=== PATIENT | female | born 1990 | race Caucasian/White ===

== ENCOUNTER 2017-02-18 09:44 | Emergency (ER) | payer MEDICAID ==
[~2017-02-18 09:44] MED LIST: CEPH-460 PO; PYRI25TA2 PO; UNIS25TA2 PO; ZOFR4TAB3 SL
--- NOTE | 2017-02-18 11:04 | PD ---
HPI Chief Complaint Nausea vomiting and contractions Date Seen: Feb 18, 2017 Travel History International Travel<30 Days: No Contact w/Intl Traveler<30Days: No Known Affected Area: No History of Present Illness HPI 26-year-old who is at 35 weeks 2 days today complaining of nausea vomiting for the past 2 days. She is able to tolerate fluids without an issue but if she attempts to eat solid foods and its accompanied by nausea. She had diarrhea that started yesterday approximately 3-5 times in a day. Patient denies fever denies and family members to her sick, denies abdominal pain. She noted occasional contractions this morning Para: 1 : 2 History Past Medical History Medical History: Denies Significant Hx Obstetric History Obstetric History Spontaneous vaginal delivery Past Surgical History Surgical History: No Previous Surgery Family History Family History: Negative Social History Alcohol Use: No Tobacco Use: No Substance Abuse: No Allergies-Medications (Allergen,Severity, Reaction): Coded Allergies: No Known Allergies (Verified , 08/14/16) Home Meds Active Scripts Ondansetron Odt (Zofran Odt)4 Mg Tab4 Mg SL Q6HR PRN (Nausea/Vomiting) #30 TAB Ref 0 Prov:Carly Cota MD 08/14/16 Doxylamine Succinate (Sleep) (Unisom)25 Mg Tab0.5 Tab PO BID PRN (NAUSEA) #20 TAB Prov:Carly Cota MD 08/14/16 Pyridoxine 25 Mg Tab25 Mg PO Q6HR PRN (NAUSEA) #30 TAB Ref 0 Prov:Carly Cota MD 08/14/16 Cephalexin (Keflex)500 Mg [id number] Mg PO BID 7 Days Ref 0 Prov:Carly Cota MD 08/14/16 Review of Systems Except as stated in HPI: all other systems reviewed are Neg Physical Exam Narrative GENERAL: Well-nourished, well-developed patient. SKIN: Warm and dry. HEAD: Normocephalic and atraumatic. EYES: No scleral icterus. No injection or drainage. ENT: No nasal drainage noted. Mucous membranes pink. Airway patent. NECK: Supple, trachea midline. No JVD. CARDIOVASCULAR: Regular rate and rhythm without murmurs, gallops, or rubs. RESPIRATORY: Breath sounds equal bilaterally. No accessory muscle use. ABDOMEN/GI: Abdomen soft, non-tender, bowel sounds present, no rebound, no guarding Gravid to [36-] weeks size Fundal Height: [-] GENITOURINARY: External Genitalia: intact and normal in appearance BUS glands: [-Normal] Cervix: [Fingertip-] Dilatation: [-Fingertip] Effacement: [-Long] Station: [-3-] Presentation: [-Vertex] Membranes: [intact ] Uterine Contractions: [-Irregular occasional] FHT's: Category: [-1] Baseline: [150-] Reactive: [-Moderate] Variability: [-Moderate] Decels: [-Absent] EXTREMITIES: No cyanosis or edema. BACK: Nontender without obvious deformity. No CVA tenderness. NEUROLOGICAL: Awake and alert. Motor and sensory grossly within normal limits. Five out of 5 muscle strength in all muscle groups. Normal speech. Data Data Vital Signs Reviewed: Yes Orders Vital Signs (Adult) .ON ADMISSION (02/18/17 10:59) ^ Labor Status (02/18/17 10:59) Urinalysis - C+S If Indicated (02/18/17 10:59) Diet Liquid (02/18/17 Lunch) Cbc No Diff, Includes Plts (02/18/17 10:59) Basic Metabolic Panel (Bmp) (02/18/17 10:59) Labs Laboratory Tests Test 02/18/17 10:30 White Blood Count 7.9 TH/MM3 Red Blood Count 4.25 MIL/MM3 Hemoglobin 12.3 GM/DL Hematocrit 37.3 % Mean Corpuscular Volume 87.7 FL Mean Corpuscular Hemoglobin 28.9 PG Mean Corpuscular Hemoglobin 32.9 % Concent Red Cell Distribution Width 14.4 % Platelet Count 193 TH/MM3 Mean Platelet Volume 8.6 FL Urine Color YELLOW Urine Turbidity CLOUDY Urine pH 6.0 Urine Specific [place] 1.031 Urine Protein 100 mg/dL Urine Glucose (UA) TRACE mg/dL Urine Ketones 10 mg/dL Urine Occult Blood NEG Urine Nitrite NEG Urine Bilirubin SMALL Urine Urobilinogen 2.0 MG/DL Urine Leukocyte Esterase LARGE Urine RBC 5 /hpf Urine WBC 39 /hpf Urine Squamous Epithelial 7 /hpf Cells Urine Bacteria MANY /hpf Urine Mucus FEW /lpf Microscopic Urinalysis Comment CULTURE INDICATED Sodium Level 139 MEQ/L Potassium Level 3.5 MEQ/L Chloride Level 107 MEQ/L Carbon Dioxide Level 21.4 MEQ/L Anion Gap 11 MEQ/L Blood Urea Nitrogen 8 MG/DL Creatinine 0.52 MG/DL Estimat Glomerular Filtration 144 ML/MIN Rate Random Glucose 78 MG/DL Calcium Level 8.0 MG/DL MDM Plan 26yo at 35 weeks gestation with probably viral gastroenteritis, patient is able to tolerate po Urine appears infected - will give script for Macrobid Phenergan as outpatient for any residual nausea Diagnosis Diagnosis: Primary Impression: Viral gastroenteritis Additional Impressions: 35 weeks gestation of Irregular uterine contractions Disposition: DISCHARGE HOME Scripts Promethazine (Phenergan)25 Mg [id number] Mg PO Q6H PRN (NAUSEA OR VOMITING) #12 TAB Ref 0 Prov:Sheyla Murray MD 02/18/17 Nitrofurantoin Monohydrate Macrocrystals (Macrobid)100 Mg [id number] Mg PO BID #14 CAP Ref 0 Prov:Sheyla Murray MD 02/18/17 Sheyla Murray MD Feb 18, 2017 11:03
[2017-02-18 11:21] LABS: HEMATOCRIT 37.3 % (35.0-46.0); MEAN CELL VOLUME 87.7 FL (80.0-100.0); MEAN CORPUSCULAR HEMOGLOBIN 28.9 PG (27.0-34.0); MEAN CORPUSCULAR HGB CONC 32.9 % (32.0-36.0); PLATELET COUNT 193 TH/MM3 (150-450); RED BLOOD COUNT 4.25 MIL/MM3 (4.00-5.30); RED CELL DISTRIBUTION WIDTH 14.4 % (11.6-17.2); REVIEW FLAG FINAL; WHITE BLOOD COUNT 7.9 TH/MM3 (4.0-11.0)
[2017-02-18 11:36] LABS: BACTERIA, URINE MANY /hpf; BLOOD, URINE NEG (NEG); COMMENT (UR) CULTURE INDICATED; CULTURE IF INDICATED CULTURE INDICATED; GLUCOSE,URINE TRACE mg/dL (NEG); KETONE, URINE 10 mg/dL (NEG); MUCUS URINE FEW /lpf (OCC); NITRITE,URINE NEG (NEG); SQUAMOUS EPITHELIAL CELL URINE 7 /hpf (0-5); URINE COLOR YELLOW (YELLW/STRAW)
[2017-02-18] MEDS ORDERED: PROCHLORPERAZINE INJ 10 MG/2 ML VIAL IM ONE (11:45)
[2017-02-18 12:02] LABS: BICARBONATE 21.4 MEQ/L (21.0-32.0); POTASSIUM 3.5 MEQ/L (3.5-5.1)
[2017-02-18] MEDS ORDERED: MACR100C2 PO (12:13)
[2017-02-18] MEDS ORDERED: PROM25TA10 PO (12:13)
[2017-02-18] MEDS ORDERED: [UNRECOGNIZED DRUG - REMARK] IM (12:30)
== END 2017-02-18 12:40 | disposition home or self-care (01) ==
LOC: HOBED 09:44
DX: O26.899 Other specified pregnancy related conditions, unspecified trimester (principal); A08.4 Viral intestinal infection, unspecified; Z3A.35 35 weeks gestation of pregnancy
CPT/HCPCS: 80048; 81001; 85027; 87086; 96372

== ENCOUNTER 2017-03-04 22:10 | Inpatient (IN) | payer MEDICAID ==
[2017-03-04] VITALS (11 sets, daily range): BP systolic 110–132; BP diastolic 55–68; PULSE 85–104; RESP 18
[~2017-03-04] VITALS: Ht 167.6 cm; Wt 96.2 kg
[~2017-03-04 22:10] MED LIST changes: +MACR100C2 PO; +PROM25TA10 PO; +ePHEDrine/NS 25 MG/5 ML SYR IV PRN
[2017-03-04] MEDS ORDERED: fentaNYL 2MCG-BUPIV 0.125% 100 ML EPIDURAL SCH (22:30)
[2017-03-04] MEDS ORDERED: DO NOT ADMINISTER ANTICOAGULANTS PRN (22:30)
[2017-03-04] MEDS ORDERED: NO SYSTEM NARCOTICS PRN (22:30)
[2017-03-04] MEDS ORDERED: LACTATED RINGER'S 1000 ML INJ 1,000 ML IV PRN (22:42)
[2017-03-04] MEDS ORDERED: fentaNYL 2MCG-BUPIV 0.125% INJ 100 ML ONE (22:42)
--- NOTE | 2017-03-04 22:42 | PD ---
HPI Chief Complaint Contractions that began at 6:30 Date Seen: Mar 04, 2017 Time Seen: 22:38 Travel History International Travel<30 Days: No Contact w/Intl Traveler<30Days: No Known Affected Area: No History of Present Illness HPI 26-year-old who is at 37 weeks and 2 days' gestation comes in complaining of contractions that of worsened since 6:30 this evening. He passed what she thought was a mucous plug but denies rupture membranes or vaginal bleeding. Patient has had uncomplicated and has had a previous spontaneous vaginal delivery of a 5 lbs. 9 oz. child. Para: 1 : 5 Miscarriage: 1 : 2 History Obstetric History Obstetric History Spontaneous vaginal delivery 1 2013 5 lbs. 9 oz., 2 elective ABDs, 1 missed AB Past Surgical History Surgical History: No Previous Surgery Family History Family History: Negative Social History Alcohol Use: No Tobacco Use: No Substance Abuse: No Allergies-Medications (Allergen,Severity, Reaction): Coded Allergies: No Known Allergies (Verified , 08/14/16) Home Meds Active Scripts Promethazine (Phenergan)25 Mg [id number] Mg PO Q6H PRN (NAUSEA OR VOMITING) #12 TAB Ref 0 Prov:Sheyla Murray MD 02/18/17 Nitrofurantoin Monohydrate Macrocrystals (Macrobid)100 Mg [id number] Mg PO BID #14 CAP Ref 0 Prov:Sheyla Murray MD 02/18/17 Ondansetron Odt (Zofran Odt)4 Mg Tab4 Mg SL Q6HR PRN (Nausea/Vomiting) #30 TAB Ref 0 Prov:Carly Cota MD 08/14/16 Doxylamine Succinate (Sleep) (Unisom)25 Mg Tab0.5 Tab PO BID PRN (NAUSEA) #20 TAB Prov:Carly Cota MD 08/14/16 Pyridoxine 25 Mg Tab25 Mg PO Q6HR PRN (NAUSEA) #30 TAB Ref 0 Prov:Carly Cota MD 08/14/16 Cephalexin (Keflex)500 Mg [id number] Mg PO BID 7 Days Ref 0 Prov:Carly Cota MD 08/14/16 Review of Systems Except as stated in HPI: all other systems reviewed are Neg Physical Exam Narrative GENERAL: Well-nourished, well-developed patient. SKIN: Warm and dry. HEAD: Normocephalic and atraumatic. EYES: No scleral icterus. No injection or drainage. ENT: No nasal drainage noted. Mucous membranes pink. Airway patent. NECK: Supple, trachea midline. No JVD. CARDIOVASCULAR: Regular rate and rhythm without murmurs, gallops, or rubs. RESPIRATORY: Breath sounds equal bilaterally. No accessory muscle use. BREASTS: Bilateral exam showed no masses , no retractions, no nipple discharge. ABDOMEN/GI: Abdomen soft, non-tender, bowel sounds present, no rebound, no guarding Gravid to [-36] weeks size Fundal Height: [-] GENITOURINARY: External Genitalia: intact and normal in appearance BUS glands: [-Normal] Cervix: [Mid position-] Dilatation: [5-6-] Effacement: [-80] Station: [-2] Presentation: [-Vertex] Membranes: [intact ] Uterine Contractions: [Every 5 minutes-] FHT's: Category: [1-] Baseline: [140-] Reactive: [-Moderate] Variability: [-Moderate] Decels: [Absent-] EXTREMITIES: No cyanosis or edema. BACK: Nontender without obvious deformity. No CVA tenderness. NEUROLOGICAL: Awake and alert. Motor and sensory grossly within normal limits. Five out of 5 muscle strength in all muscle groups. Normal speech. Data Data Vital Signs Reviewed: Yes Orders Ob (2e) Additional Admit Info (03/04/17 22:35) [facility] Medical Record Reviewed: Yes Plan 26-year-old who is at 37 weeks 1 day who is in labor at 5-6 cm Group B strep is negative Patient desires epidural Dr. Dolan has been notified Sheyla Murray MD Mar 04, 2017 22:42
[2017-03-04] MEDS ORDERED: LIDOCAINE HCL 1% 50 ML VIAL I-DERMAL PRN (22:45)
[2017-03-04] MEDS ORDERED: LIDOCAINE HCL 1% 50 ML VIAL INFIL PRN (22:45)
[2017-03-04] MEDS ORDERED: ONDANSETRON HCL 4 MG/2 ML VIAL IV PRN (22:45)
[2017-03-04] MEDS ORDERED: SODIUM CHLORID 0.9% 500 ML INJ 500 ML IV PRN (22:45)
[2017-03-04] MEDS ORDERED: OXYTOCIN 30 UNITS-500ML PREMIX 500 ML IV ONE (22:45)
[2017-03-04] MEDS ORDERED: CITRIC ACID-SODIUM CITRATE LIQ 30 ML UDC PO SCH (22:45)
[2017-03-04] MEDS ORDERED: MINERAL OIL 10 ML VIAL TOPICAL PRN (22:45)
[2017-03-04 23:00] LABS: BACTERIA, URINE RARE /hpf; BLOOD, URINE NEG (NEG); GLUCOSE,URINE NEG (NEG); KETONE, URINE NEG (NEG); MUCUS URINE FEW /lpf (OCC); NITRITE,URINE NEG (NEG); SQUAMOUS EPITHELIAL CELL URINE 1 /hpf (0-5); URINE COLOR YELLOW (YELLW/STRAW)
[2017-03-04 23:01] LABS: AUTOMATED NEUTROPHIL # 6.9 TH/MM3 (1.8-7.7); BASOPHIL # 0.1 TH/MM3 (0-0.2); BASOPHIL % 0.8 % (0.0-2.0); EOSINOPHIL # 0.1 TH/MM3 (0-0.4); EOSINOPHIL % 0.6 % (0.0-4.0); HEMATOCRIT 35.5 % (35.0-46.0); HEMO FLAGS DIFF FINAL; LYMPH % 20.4 % (9.0-44.0); MEAN CELL VOLUME 85.7 FL (80.0-100.0); MEAN CORPUSCULAR HEMOGLOBIN 28.5 PG (27.0-34.0); MEAN CORPUSCULAR HGB CONC 33.2 % (32.0-36.0); MONO % 6.2 % (0.0-8.0); PLATELET COUNT 222 TH/MM3 (150-450); RED BLOOD COUNT 4.14 MIL/MM3 (4.00-5.30); RED CELL DISTRIBUTION WIDTH 14.7 % (11.6-17.2); WHITE BLOOD COUNT 9.6 TH/MM3 (4.0-11.0)
[2017-03-04 23:01] LABS: COMMENT (UR) CULT NOT INDICATED; CULTURE IF INDICATED CULT NOT INDICATED
[2017-03-04] MEDS ORDERED: SODIUM CHLOR 0.9% 1000 ML INJ 1,000 ML IV PRN (23:02)
[2017-03-05] VITALS (52 sets, daily range): BP systolic 95–150; BP diastolic 42–128; PULSE 65–100; RESP 16–20; TEMP 97.6–98.7
[2017-03-05] MEDS: LACTATED RINGER'S 1000 ML INJ 1,000 ML IV SCH ×2 (00:07→05:37)
[2017-03-05] MEDS ORDERED: OXYTOCIN 30 UNITS/NS 500ML PREMIX IV SCH (01:30)
--- NOTE | 2017-03-05 07:31 | PD.OB.DELI ---
Anesthesia: Epidural Episiotomy: None Vaginal Delivery: Normal Presentation: Occiput anterior Nuchal Cord: None Delayed cord clamping (45 sec): Yes Infant: Female One Minute : 9 Weight: 6 Placenta: Spontaneous delivery Laceration: No lacerations Jocelyn Dodson MD Mar 05, 2017 07:30
[2017-03-05] MEDS ORDERED: ZOLPIDEM TARTRATE 5 MG TAB PO PRN (07:45)
[2017-03-05] MEDS ORDERED: DOCUSATE SODIUM 50 MG/SENNA 8.6 MG TAB PO PRN (07:45)
[2017-03-05] MEDS ORDERED: BENZOCAINE 20% TOPICAL SPRAY 60 ML CAN TOPICAL PRN (07:45)
[2017-03-05] MEDS ORDERED: ONDANSETRON ODT 4 MG TAB PO PRN (07:45)
[2017-03-05] MEDS ORDERED: ALUMINUM/MAGNESIUM/SIMETH 30 ML CUP PO PRN (07:45)
[2017-03-05] MEDS ORDERED: SODIUM CHLORIDE 0.9% FLUSH 10 ML FLUSH IV FLUSH PRN (07:45)
[2017-03-05] MEDS ORDERED: WITCH HAZEL 50%/GLYCERIN 12.5% 40 PAD JAR TOPICAL PRN (07:45)
[2017-03-05] MEDS ORDERED: SODIUM CHLORIDE 0.9% FLUSH 10 ML FLUSH IV FLUSH SCH (09:00)
[2017-03-05] MEDS ORDERED: MEASLES, MUMPS, RUBELLA VACCINE 0.5 ML VIAL SQ ONE (16:00)
[2017-03-05] MEDS ORDERED: DIPHTH/TETANUS/ACEL PERTUSSIS (BOOSTER) 0.5 ML VIAL/PFS IM ONE (16:00)
[2017-03-05] MEDS: IBUPROFEN 600 MG TAB PO PRN ×2 (17:18→23:30)
[2017-03-05] MEDS: ACETAMINOPHEN 325 MG TAB PO PRN (23:30)
[2017-03-06] MEDS: IBUPROFEN 600 MG TAB PO PRN (09:00)
[2017-03-06] MEDS: ACETAMINOPHEN 325 MG TAB PO PRN (09:00)
--- NOTE | 2017-03-06 11:17 | HHI.OB ---
Subjective Post Day: 1 Remarks PPD#1, doing well, doing well Objective Vitals/I&O Vital Signs Date Time Temp Pulse Resp B/P Pulse Ox O2 Delivery O2 Flow Rate FiO2 03/05/17 19:32 84 16 110/61 03/05/17 19:32 97.6 Objective Remarks GENERAL: Well-nourished, well-developed patient. CARDIOVASCULAR: Regular rate and rhythm without murmurs, gallops, or rubs. RESPIRATORY: Breath sounds equal bilaterally. No accessory muscle use. ABDOMEN/GI: Abdomen soft, non-tender. Fundus: Firm, non-tender at umbilicus. GENITOURINARY: Light to moderate bleeding. EXTREMITIES: No cyanosis or edema, non-tender, without signs of DVT. Medications and IVs Current Medications Medications (Trade) Dose Ordered Sig/Gita Route Start Time Stop Time Status Last Admin Lactated Ringer's 1,000 ml @ 125 mls/hr Q8H IV 03/04/17 22:42 03/05/17 05:37 Lactated Ringer's 1,000 ml @ 3,000 mls/hr Q20M PRN IV 03/04/17 22:42 Sodium Chloride 500 ml @ 1,000 mls/hr ONCE PRN IV 03/04/17 22:45 (NS 1000 ml Inj) 1,000 ml @ 100 mls/hr Q10H PRN IV 03/04/17 23:02 Mineral Oil 10 ml 10 ml UNSCH PRN TOPICAL 03/04/17 22:45 Fentanyl/ Bupivacaine HCl 100 ml @ 0 mls/hr TITRATE EPIDURAL 03/04/17 22:30 03/05/17 05:37 (Pitocin 30 Units-NS 500 ml Premix) 500 ml @ 0 mls/hr TITRATE IV 03/05/17 01:30 03/05/17 01:47 (NS Flush) 2 ml BID IV FLUSH 03/05/17 09:00 (NS Flush) 2 ml UNSCH PRN IV FLUSH 03/05/17 07:45 (Tylenol) 650 mg Q4H PRN PO 03/05/17 07:45 03/06/17 09:00 (Motrin) 600 mg Q6H PRN PO 03/05/17 07:45 03/06/17 09:00 (Americaine 20% Top Spr) 1 spray Q4H PRN TOPICAL 03/05/17 07:45 (Tucks Pads) 1 applic QID PRN TOPICAL 03/05/17 07:45 (Kristina-Colace) 2 tab Q12H PRN PO 03/05/17 07:45 03/06/17 09:00 (Ambien) 5 mg HS PRN PO 03/05/17 07:45 (Mag-Al Plus Susp Liq) 15 ml Q8H PRN PO 03/05/17 07:45 (Zofran Odt) 4 mg Q6H PRN PO 03/05/17 07:45 Assessment/Plan Assessment and Plan PPD#1, cleared for discharge Discharge Planning routine Wayne Valdez MD Mar 06, 2017 11:17
[2017-03-06] MEDS ORDERED: IBUP-232 PO (11:18)
--- NOTE | 2017-03-06 11:19 | HHI.DS ---
Admission Date Mar 04, 2017 at 22:36 Admitting Diagnosis Diagnosis: Vaginal Delivery: Normal : Female Brief History 26-year-old who is at 37 weeks and 2 days' gestation comes in complaining of contractions that of worsened since 6:30 this evening. He passed what she thought was a mucous plug but denies rupture membranes or vaginal bleeding. Patient has had uncomplicated and has had a previous spontaneous vaginal delivery of a 5 lbs. 9 oz. child. Pt Condition on Discharge: Good Discharge Disposition: Discharge Home Discharge Instructions Diet Instructions: As Tolerated, No Restrictions Activities You Can Perform: Shower Only-No Bath Activities to Avoid: Driving for 24 hrs, Prolonged Standing, Strenuous Activity , Sexual Activity Wayne Valdez MD Mar 06, 2017 11:19
== END 2017-03-06 15:55 | disposition home or self-care (01) | DRG 775 ==
LOC: HOBED 22:10 → H2EB 22:36 → H1EA 03-05 10:21
PROVIDERS: ADMIT Obstetrics & Gynecology; ATTEND Obstetrics & Gynecology
PROC: 10E0XZZ Delivery of Products of Conception, External Approach (ICD-10-PCS; principal; 2017-03-05)
PROC: 3E0R3CZ (ICD-10-PCS; 2017-03-05)
PROC: 00HU33Z Insertion of Infusion Device into Spinal Canal, Percutaneous Approach (ICD-10-PCS; 2017-03-05)
DX: O80 Encounter for full-term uncomplicated delivery (principal); Z37.0 Single live birth; Z3A.37 37 weeks gestation of pregnancy
CPT/HCPCS: 81001; 85025; 90715; J2590; J7120

== ENCOUNTER 2018-01-17 18:12 | Emergency (ER) | payer MEDICAID ==
[~2018-01-17] VITALS: Ht 167.6 cm; Wt 87.7 kg
[~2018-01-17 18:12] MED LIST changes: -CEPH-460 PO; +IBUP-232 PO; -MACR100C2 PO; -PROM25TA10 PO; -PYRI25TA2 PO; -UNIS25TA2 PO; -ZOFR4TAB3 SL; -ePHEDrine/NS 25 MG/5 ML SYR IV PRN
[2018-01-17 18:15] VITALS: BP 141/78; PULSE 66; RESP 18; TEMP 98.3; O2SAT 99
[2018-01-17 19:44] LABS: BILIRUBIN, URINE NEG (NEG); BLOOD, URINE NEG (NEG); GLUCOSE,URINE NEG (NEG); KETONE, URINE NEG (NEG); NITRITE,URINE NEG (NEG); URINE COLOR YELLOW (YELLW/STRAW); URINE LEUKOCYTE ESTERASE SMALL (NEG)
[2018-01-17 19:50] LABS: RBC, URINE 0-3 /hpf (0-3); SQUAMOUS EPITHELIAL CELL URINE > 8 /hpf (0-5)
--- NOTE | 2018-01-17 20:06 | PD ---
HPI Chief Complaint: Chest Pain Time Seen by Provider: 20:00 Travel History International Travel<30 days: No Contact w/Intl Traveler<30days: No Traveled to known affect area: No History of Present Illness HPI 27-year-old female presents to the emergency department by private transportation for complaint of intermittent left-sided chest pain radiating to the left subscapular region 3 days. Episodes of discomfort are 2-3/10 intensity when present associated with shortness of breath and worsen with deep inspiratory effort. Patient denies personal history of CAD hypertension hyperlipidemia diabetes tobaccoism control pill use clotting disorder and denies family history of clotting disorder but does report family history of premature onset heart disease in her father age 40s with from [place] at age 50. Patient has been told in the past that she does have a low HDL. Last menstrual period was 01/01/18 and normal for her. Patient denies any long distance travel protracted bedrest or surgical procedure. Patient denies any lower extremity pain or swelling. Patient has taken ibuprofen with symptom improvement and relief. Patient denies any new injury exercise regimen lifting also denies any recent respiratory illness or myalgias and arthralgias. Currently pain is not present. Exacerbating factors deep inspiratory effort; alleviating factors ibuprofen. PFSH Past Medical History Narrative Medical , bacterial vaginosis; occasional alcohol use; nursing notes Medical History: Denies Significant Hx Diminished Hearing: No Reproductive: Yes (RECURRENT BACTERIAL VAGINITIS, THREATENED AB 2013) Immunizations Current: No ?: Not LMP: JANUARY 01 : 4 Para: 1 : 2 Past Surgical History Surgical History: No Previous Surgery Social History Alcohol Use: Yes (OCCASIONAL) Tobacco Use: No Substance Use: No Allergies-Medications (Allergen,Severity, Reaction): Coded Allergies: No Known Allergies (Verified Adverse Reaction, Unknown, 01/17/18) Reported Meds & Prescriptions Reported Meds & Active Scripts Active Narrative Medication Occasional ibuprofen Review of Systems Except as stated in HPI: all other systems reviewed are Neg General / Constitutional: No: Fever, Chills HENT: No: Congestion Cardiovascular: Positive: Chest Pain or Discomfort, No: Palpitations, Diaphoresis, Syncope Respiratory: Positive: Shortness of Breath (intermittent), Pleuritic Pain ( mild occassional) Gastrointestinal: No: Nausea, Vomiting, Abdominal Pain Genitourinary: No: Dysuria, Flank Pain Musculoskeletal: No: Myalgias, Arthralgias Skin: No Rash Neurologic: No: Weakness, Dizziness Psychiatric: No: Anxiety Hematologic/Lymphatic: No: Lymph Node Enlargement Physical Exam Narrative GENERAL: Well-developed well-nourished female no acute distress no respiratory distress GCS 15 SKIN: Warm and dry. HEAD: Normocephalic. EYES: No scleral icterus. No injection or drainage. NECK: Supple, trachea midline. No JVD or lymphadenopathy. CARDIOVASCULAR: Regular rate and rhythm without murmurs, gallops, or rubs. Chest wall: Nontender to direct palpation over the anterior chest wall. RESPIRATORY: Breath sounds equal bilaterally. No accessory muscle use. GASTROINTESTINAL: Abdomen soft, non-tender, nondistended. MUSCULOSKELETAL: No cyanosis, or edema. No calf tenderness to palpation no posterior calf cording negative Homans. Bilateral dorsalis pedis pulses and radial pulses are 2+ to palpation. BACK: Nontender without obvious deformity. No CVA tenderness. Data Data Last Documented VS Vital Signs Date Time Temp Pulse Resp B/P (MAP) Pulse Ox O2 Delivery O2 Flow Rate FiO2 01/17/18 20:57 52 16 116/52 (73) 100 Room Air 01/17/18 18:15 98.3 Orders Orders Ed Urine Pregnancytest Poc (01/17/18 19:36) Urinalysis - C+S If Indicated (01/17/18 19:36) Chest, Pa & Lat (01/17/18 ) Electrocardiogram (01/17/18 ) Basic Metabolic Panel (Bmp) (01/17/18 19:58) Magnesium (Mg) (01/17/18 19:58) Troponin I (01/17/18 19:58) D-Dimer (01/17/18 19:58) Ed Discharge Order (01/17/18 21:25) Labs Laboratory Tests Test 01/17/18 19:40 01/17/18 20:15 Urine Color YELLOW Urine Turbidity CLEAR Urine pH 6.0 Urine Specific [place] LESS/EQUAL 1.005 Urine Protein NEG mg/dL Urine Glucose (UA) NEG mg/dL Urine Ketones NEG mg/dL Urine Occult Blood NEG Urine Nitrite NEG Urine Bilirubin NEG Urine Urobilinogen 0.2 MG/DL Urine Leukocyte Esterase SMALL Urine RBC 0-3 /hpf Urine Squamous Epithelial Cells > 8 /hpf Microscopic Urinalysis Comment CULT NOT INDICATED D-Dimer Quantitative (PE/DVT) 0.38 MG/L FEU Blood Urea Nitrogen 11 MG/DL Creatinine 0.61 MG/DL Random Glucose 88 MG/DL Calcium Level 9.2 MG/DL Magnesium Level 2.2 MG/DL Sodium Level 138 MEQ/L Potassium Level 3.7 MEQ/L Chloride Level 106 MEQ/L Carbon Dioxide Level 25.4 MEQ/L Anion Gap 7 MEQ/L Estimat Glomerular Filtration Rate 119 ML/MIN Troponin I LESS THAN 0.02 NG/ML MDM Medical Decision Making Medical Screen Exam Complete: Yes Emergency Medical Condition: Yes Medical Record Reviewed: Yes Interpretation(s) [id number] hCG: Negative UA: Culture not indicate EKG normal sinus rhythm no acute ST elevation injury pattern or ectopy noted Troponin I: Less than 0.02, not elevated D-dimer: 0.38, not elevated Last Impressions Chest X-Ray 01/17/18 0000 Signed Impressions: CONCLUSION: No acute cardiopulmonary disease. Basic metabolic panel: Lab values in normal range Differential Diagnosis Atypical chest pain, pleurisy, musculoskeletal pain, viral syndrome, also to consider PE, unlike ACS, pneumothorax Narrative Course IV access obtained specimens collected and sent for resulting EKG performed which reveals no acute injury pattern change and chest x-ray ordered [id number] hCG is negative urinalysis no cultures indicated EKG sinus rhythm no acute injury pattern or ectopy Chest x-ray normal Cardiac enzymes troponin I is less than 0.02, not elevated; d-dimer was found to be 0.38, not elevated Metabolic panel is found to be in normal range Patient asymptomatic Patient stable for outpatient management informed of imaging EKG and lab results. Diagnosis Primary Impression: Atypical chest pain Referrals: Primary Care Physician call for appointment Patient Instructions: General Instructions Additional Instructions: Increase fluid hydration Follow-up with primary care provider May continue to use as needed as tolerated ibuprofen 600 mg as often as every 6 hours up to maximum dose of 800 mg every 8 hours for pain associated with inflammation Take acetaminophen as needed for fever 100.4F Disposition: 01 DISCHARGE HOME Condition: Stable Nette Mccrary MD January 17, 2018 20:06
--- NOTE | 2018-01-17 20:29 | RADRPT ---
EXAM DATE: 01/17/2018 8:26 PM EDT AGE/SEX: 27 years / Female INDICATIONS: Left sided chest pain for 3 days CLINICAL DATA: This is the patient's initial encounter. Patient reports that signs and symptoms have been present for 3 days and indicates a pain score of 5/10. MEDICAL/SURGICAL HISTORY: None. None. COMPARISON: No prior [place] exams available for comparison. FINDINGS: PA and lateral views of the chest demonstrate the lungs to be symmetrically aerated without evidence of mass, infiltrate or effusion. The cardiomediastinal contours are unremarkable. Osseous structures are intact. CONCLUSION: No acute cardiopulmonary disease. Electronically signed by: James Chance MD 01/17/2018 8:28 PM EDT
[2018-01-17 20:32] LABS: CHLORIDE 106 MEQ/L (98-107); SODIUM (NA) 138 MEQ/L (136-145)
[2018-01-17 20:34] LABS: CALCIUM 9.2 MG/DL (8.5-10.1)
[2018-01-17 20:35] LABS: BICARBONATE 25.4 MEQ/L (21.0-32.0); BLOOD UREA NITROGEN 11 MG/DL (7-18); GLUCOSE,RANDOM 88 MG/DL (74-106); MAGNESIUM 2.2 MG/DL (1.5-2.5)
[2018-01-17 20:38] LABS: CREATININE 0.61 MG/DL (0.50-1.00); GLOMERULAR FILTRATION RATE 119 ML/MIN (>89)
[2018-01-17 20:43] LABS: TROPONIN I LESS THAN 0.02 NG/ML (0.02-0.05)
[2018-01-17 20:57] VITALS: BP 116/52; PULSE 52; RESP 16; O2SAT 100
--- NOTE | 2018-01-18 15:20 | EKG ---
Date Performed: 01/17/2018 Time Performed: 18:24:32 PTAGE: 27 years EKG: Sinus rhythm WITHIN NORMAL LIMITS BORDERLINE ECG NO PREVIOUS TRACING DOCTOR: Dony Martinez Interpretating Date/Time 01/18/2018 15:18:19
== END 2018-01-17 21:40 | disposition home or self-care (01) ==
LOC: PHEFT 18:12
DX: R07.89 Other chest pain (principal); R06.02 Shortness of breath; R94.31 Abnormal electrocardiogram [ECG] [EKG]
CPT/HCPCS: 71046; 80048; 81001; 83735; 84484; 84703; 85379; 93005; 99285